=== PATIENT | female | born 1960 | race Caucasian/White ===

== ENCOUNTER 2020-02-21 08:30 | Inpatient (IN) | payer OTHER ==
[~2020-02-21] VITALS: Ht 167.6 cm; Wt 127.0 kg
[~2020-02-21 08:30] MED LIST: PHENERGAN-CODE120 ML PO; ZPAK PO
[2020-02-21 08:32] VITALS: BP 181/95
[2020-02-21] MEDS ORDERED: WELLBUTRIN SR150 MG PO (08:45)
[2020-02-21] MEDS ORDERED: REXULTI1 MG PO (08:46)
[2020-02-21] MEDS ORDERED: BRINTELLIX20 MG PO (08:56)
--- NOTE | 2020-02-21 09:12 | EKG ---
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
[2020-02-21 09:39] LABS: ABSOLUTE NEUTROPHILS 11.9 thou/uL (1.4-8.2); BASOPHILS 0.2 % (0.0-2.0); HEMATOCRIT 43.3 % (37.0-47.0); HEMOGLOBIN 15.1 gm/dL (12.0-15.0); LYMPHOCYTES 7.2 % (24.0-44.0); MCH 33.1 pg (26.0-34.0); MCHC 34.7 g/dL (28.0-37.0); MCV 95.4 fL (80.0-100.0); MONOCYTES 1.6 % (1.0-8.0); PLATELET COUNT 353 thou/uL (150-400); RBC 4.54 mil/uL (4.20-5.00); RDW 13.6 % (10.5-14.5); WBC 13.1 thou/uL (4.0-11.0)
[2020-02-21 09:45] LABS: CALCIUM 8.9 mg/dL (8.5-10.1); CREATININE 1.1 mg/dL (0.6-1.0); POTASSIUM 3.8 mmol/L (3.5-5.1)
[2020-02-21 09:47] LABS: ALBUMIN 3.8 g/dL (3.4-5.0); TOTAL BILIRUBIN 0.5 mg/dL (0.2-1.0); TOTAL PROTEIN 7.3 g/dL (6.4-8.2)
[2020-02-21 12:34] VITALS: BP 192/57
[2020-02-21 12:52] LABS: URINE BILIRUBIN NEGATIVE (Negative); URINE BLOOD TRACE (Negative); URINE COLOR YELLOW; URINE GLUCOSE-RANDOM* NEGATIVE (Negative); URINE KETONES NEGATIVE (Negative); URINE LEUKOCYTES-REFLEX NEGATIVE (Negative); URINE PROTEIN (DIPSTICK) TRACE (Negative); URINE UROBILINOGEN 0.2 E.U./dl (0.2-1.0)
[2020-02-21 13:01] LABS: URINE CLARITY CLOUDY; URINE NITRITE-REFLEX POSITIVE (Negative)
[2020-02-21 13:11] LABS: BACTERIA-REFLEX >30 Many /HPF (None Seen); CASTS None Seen /LPF (None Seen); CRYSTALS None Seen /LPF (None Seen); SQUAMOUS 0-3 Few /LPF (0-3)
[2020-02-21 13:12] LABS: URINE RBC 0-2 Rare /HPF (0-2); URINE WBC-REFLEX 0-5 Rare /HPF (0-5)
--- NOTE | 2020-02-21 13:46 | NUR ---
ATTEMPTED TO GIVE REPORT-NURSE STATED THEY ARE BUSY AND WILL HAVE TO CALL ME BACK.
[2020-02-21 14:18] VITALS: BP 192/73
[2020-02-21 14:30] VITALS: BP 187/72
--- NOTE | 2020-02-21 15:51 | NUR ---
PATIENT ADMITTED [facility] ER WITH PANCREATITIS, C/O PAIN WITH ABDOMEN AREA 04/24, WARNER Nesbitt/RN GAVE 2 HYDROCODONE TABLETS. PATIENT ALERT AND ORIENTED X 4, UP WITH ASSIST TO BR, C/O WEAKNESS. FALL PRECAUTIONS IN PLACE, PATIENT INSTRUCTED TO CALL FOR ASSISTANCE. PATIENT HAS LETF AC IV WITH NS AT 100CC/HR. WELCOME PACK GIVEN. PATIENT ARRIVED AT 1435. WILL REPORT TO WARNER ZAIDI. CALL LIGHT WITHIN REACH.
--- NOTE | 2020-02-21 18:19 | NUR ---
Patient arrived on Unit at 1430. She is admitted with Pancreatits symptoms which started last Friday. She rates her abdominal pain anywhere from a four to level eight. She was given Hydrocodone 1 tab 5/325mg po at 1816 with Zofran IV push for nausea. Patient is NPO, to have an EGD in am. Patient started on IVPB Ceftriaxone this evening without any adverse reactions. Patient is pleasant and cooperative. She verbalizes an understanding of instructions related to her current medications and up-coming procedure. Will report to on-coming nurse.
[2020-02-21 19:57] VITALS: BP 142/62
[2020-02-22 00:13] VITALS: BP 141/71
--- NOTE | 2020-02-22 05:10 | NUR ---
Assumed pt care at 1900. Pt's A/OX4,pleasant. VSS. Denies pain on assessment, no N/V.Up with SBA.Pt is NPO for EGD today, IVF infusing via LAC w/o problems. Fall precautions in place,calls appropriately for help. Resting quietly w/o any distress noted will continue to monitor pt.
[2020-02-22 06:29] LABS: HEMATOCRIT 40.5 % (37.0-47.0); HEMOGLOBIN 13.6 gm/dL (12.0-15.0); MCH 32.7 pg (26.0-34.0); MCHC 33.7 g/dL (28.0-37.0); MCV 97.2 fL (80.0-100.0); RBC 4.16 mil/uL (4.20-5.00); RDW 14.1 % (10.5-14.5); WBC 10.9 thou/uL (4.0-11.0)
[2020-02-22 06:47] LABS: CALCIUM 8.1 mg/dL (8.5-10.1); CREATININE 1.1 mg/dL (0.6-1.0); POTASSIUM 3.3 mmol/L (3.5-5.1)
[2020-02-22 08:09] VITALS: BP 150/64
--- NOTE | 2020-02-22 09:21 | NUR ---
ASSUMED CARE AT 0700. PT IS ALERT AND ORIENTED. NO COMPLAINTS AT THIS TIME. VSSA/RA. NPO AWAITNG PROCEDURE. NO N/V. PIV INFUSING WITHOUT ISSUESE. PT IS UAL WITH A STEADY GAIT OBSERVED WALKING FROM BATHROOM. CALL LIGHT IN REACH. WILL CONTINUE TO MONITOR
[2020-02-22 12:32] VITALS: BP 171/93
--- NOTE | 2020-02-22 13:54 | NUR ---
PT ADMITTED RELATED TO PANCREATITIS. CM REVIEWED CHART AND SPOKE WITH CARE TEAM. CM CALLED AND SPOKE WITH PT AT BEDSIDE THIS DAY. PT APPEARED TO BE A&O X4. CM ROLE INTRODUCED. PT INDICATED SHE LIVES IN A HOUSE WITH HER GOD FATHER. PT INDICATED THERE ARE THREE STEPS TO ENTER AND NO STEPS INSIDE. 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 PT INDICATED SHE HAS A CANE FOR USE AT HOME IF NEEDED. PT INDICATED NO HH HX. PT HAVING AN EGD THIS DAY. CM TO FOLLOW INDICATED WITH DC PLANNING.
[2020-02-22 15:59] VITALS: BP 156/79
[2020-02-22 19:58] VITALS: BP 159/72
--- NOTE | 2020-02-23 04:58 | NUR ---
Assumed pt care at 1900. A/OX4, VSS. Denies pain on assessment. No N/V,tolerated dinner well. Up ad morris w/o any problems. IVF infusing via LAC w/o any problems. Reports she didn't sleep well this shift otherwise resting quietly in bed w/o any distress noted, encouraged to call for help as needed. Will continue to monitor pt.
[2020-02-23 06:51] LABS: HEMATOCRIT 37.5 % (37.0-47.0); HEMOGLOBIN 12.6 gm/dL (12.0-15.0); MCH 32.7 pg (26.0-34.0); MCHC 33.6 g/dL (28.0-37.0); MCV 97.2 fL (80.0-100.0); RBC 3.86 mil/uL (4.20-5.00); RDW 13.9 % (10.5-14.5); WBC 8.7 thou/uL (4.0-11.0)
[2020-02-23 06:59] LABS: CREATININE 1.1 mg/dL (0.6-1.0); POTASSIUM 3.3 mmol/L (3.5-5.1)
[2020-02-23 07:52] VITALS: BP 153/71
[2020-02-23] MEDS ORDERED: CEFUROXIME500 MG PO (15:42)
[2020-02-23] MEDS ORDERED: PROTONIX40 M1 PO (15:42)
[2020-02-23 15:51] VITALS: BP 153/71
--- NOTE | 2020-02-23 16:26 | NUR ---
PT IS AOX4, VSS, NO C/O PAIN. PT UP AD SHAINA IN ROOM. PT RECEIVED IV ANTIBIOTICS ORDERED. TOLERATING DIET WELL. DISCHARGE INSTRUCTIONS RECEIVED PT REPORTS UNDERSTANDING. PRESCRIPTIONS CALLED IN TO HER PHARMACY. FAMILY WILL ADMINISTRATION SPECIALIST. IV D/C'D. WILL TAKE TO ER BY WC FOR RIDE.
--- NOTE | 2020-02-23 17:07 | PATH ---
[facility] [address] [place] [address] PATHOLOGY RPT PROCEDURE Name: CORRY SANTOS KARINA Room #: 462-P DIS IN M.R.#: [id number] Admission: 02/21/20 Date of : 58 Discharge: 02/23/20 Report #: [id number] Path Case #: [id number] [facility] Accession Number: [id number] . 01 Material submitted: . stomach - BIOPSY OF GASTRIC ULCERS . 01 Clinical history: . Upper abdomen pain, reflux, dysphagia . 02 Diagnosis: Gastric mucosa, gastric ulcers, endoscopic biopsy: - Marked active gastritis with extensive ulceration as well as features of reactive gastropathy. - Negative for intestinal metaplasia, atrophy, dysplasia or malignancy. - Negative for Helicobacter pylori (properly controlled immunohistochemical stain performed). (IUV:daquan; 02/23/2020) QMS 02/23/2020 1617 Local . 02 Comment: An intensive search for Helicobacter pylori-like organisms is negative. Absence of such organisms does not entirely exclude the possibility and may be due to sampling. Other possible etiologies may include chemical gastritis, autoimmune gastritis, gastritis associated with inflammatory bowel disease. Please correlate with clinical, endoscopic, and microbiological studies if clinically indicated. (IUV:daquan; 02/23/2020) . 02 Electronically signed: . Deepali Willingham MD, Pathologist NPI- [id number] . 01 Gross description: . The specimen is received in formalin, labeled "Corry Santos, BX of gastric ulcers" and consists of multiple fragments of pink-thorpe tissue measuring 1.6 x 0.3 x 0.2 cm in aggregate which are entirely submitted in A1. (JM; 02/22/2020) JFQ/SHARITA 02/22/2020 1702 Local . 02 Pathologist provided ICD-10: K29.00, K25.9 . 02 CPT . 330333, B76602 Specimen Comment: A courtesy copy of this report has been sent to [phone], [place] [address] PATHOLOGY RPT PROCEDURE Name: CORRY SANTOS Room #: 462-P DIS IN M.R.#: [id number] Admission: 02/21/20 Date of : 58 Discharge: 02/23/20 Report #: [id number] Path Case #: [id number] Specimen Comment: [id number], Specimen Comment: Report sent to ,DR JENNINGS / DR SYLVESTER Performed at: [address] [facility], [place], [place] [id number] MD Min Davis MD Phone: [phone] Performed at: [address] [facility] [id number] MD Deepali Willingham MD Phone: [phone]
--- NOTE | 2020-02-23 17:52 | P ---
[facility] [place] [address] PROCEDURE REPORT Name: CORRY LEONG KARINA Room #: 462-P [facility] IN M.R.#: [id number] Admission: 02/21/20 Attend Phys: Steh Cook MD Discharge: 02/23/20 Date of : 58 Report #: [id number] THIS REPORT FOR: cc: Sinan Patel, Tony Hendrickson MD ~ CC: Sinan Christy INPATIENT UPPER ENDOSCOPY REPORT BRIEF HISTORY: The patient is a 59-year-old woman who was admitted with severe abdominal pain and mildly elevated lipase with a normal CT and severe epigastric pain out of proportion to laboratory and radiographic findings. She also reports she has had some reflux symptoms and intermittent dysphagia. POSTOPERATIVE DIAGNOSES: 1. Extensive ulceration of the antrum of the stomach. 2. Grade C erosive esophagitis. 3. Dysphagia. MEDICATIONS: Deep sedation with propofol per Anesthesia. SPECIMEN: Biopsies of gastric ulcers. ESTIMATED BLOOD LOSS: 3 mL. PROCEDURE: EGD and Sinha dilation. FINDINGS: Prior to propofol sedation, the procedure of upper endoscopy and dilation was discussed with the patient as well as potential risks and its complications. She indicates she understands and desires to proceed. DESCRIPTION OF PROCEDURE: With the patient in left lateral decubitus position, the Olympus video endoscope was inserted into the cervical esophagus under direct vision without difficulty. Examination of this organ through its entire length revealed normal esophageal mucosa down to the squamocolumnar junction. At squamocolumnar junction, she was noted to have some erosive changes limited primarily to the squamocolumnar junction, but also a few erosions in the distal body of the esophagus. Findings were consistent with grade C erosive esophagitis. Scope was advanced into the stomach, was examined on end view as well as retroflexed views. Examination of the proximal stomach revealed normal appearing mucosa. Upon retroflexion, no masses were seen in the cardia. However, exam in the antrum revealed extensive ulceration with very deep serpiginous ulcers that were confluent. I would say at least a third of the antrum, if not more, was involved with ulceration. It did have a benign [facility] [address] [place] [address] PROCEDURE REPORT Name: CORRY LEONG KARINA Room #: 462-P DIS IN .R.#: [id number] Admission: 02/21/20 Attend Phys: Seth Cook MD Discharge: 02/23/20 Date of : 58 Report #: [id number] appearance. The ulcers extended the pylorus but the pylorus itself was patent and not strictured. There is no evidence of bleeding. There were some black areas on some of the ulcers, but stigmata of active bleeding were not seen. Multiple biopsies were obtained. The duodenal bulb and postbulbar duodenal sweep down to the third portion was unremarkable. At that point, the scope was slowly withdrawn and the careful circumferential views confirmed the above findings. The patient tolerated the procedure well. DISPOSITION: The patient with severe epigastric pain. She is found to have extensive ulceration in the antrum of the stomach. We will follow up on biopsies. Also continue her on PPI. Also, due to the extensive ulceration, we will check a serum gastrin. She should avoid use of nonsteroidals. <ELECTRONICALLY SIGNED> By: Tony Rasheed MD 02/23/20 1752 1138 [id number] Tony Rasheed MD /nt
== END 2020-02-23 17:04 | disposition home or self-care (01) | DRG 380 ==
LOC: ER 08:30 → EROBS 12:43 → 4W 12:43
PROVIDERS: Emergency Medicine; ADMIT Hospitalist; ATTEND Hospitalist
DX: K22.10 Ulcer of esophagus without bleeding (principal); K85.90 Acute pancreatitis without necrosis or infection, unspecified; R65.11 Systemic inflammatory response syndrome (SIRS) of non-infectious origin with acute organ dysfunction; N39.0 Urinary tract infection, site not specified; Z68.42 Body mass index [BMI] 45.0-49.9, adult; K25.9 Gastric ulcer, unspecified as acute or chronic, without hemorrhage or perforation; K29.70 Gastritis, unspecified, without bleeding; Z20.828 Contact with and (suspected) exposure to other viral communicable diseases; F41.9 Anxiety disorder, unspecified; F32.9 Major depressive disorder, single episode, unspecified; E66.9 Obesity, unspecified; R13.10 Dysphagia, unspecified; K21.9 Gastro-esophageal reflux disease without esophagitis; F17.210 Nicotine dependence, cigarettes, uncomplicated; F12.90 Cannabis use, unspecified, uncomplicated; R47.02 Dysphasia; Z88.6 Allergy status to analgesic agent; Z88.1 Allergy status to other antibiotic agents; Z88.8 Allergy status to other drugs, medicaments and biological substances; Z79.899 Other long term (current) drug therapy
CPT/HCPCS: 10040; 62110; 62900; 70005